=== PATIENT | female | born 1965 | race African-American/Black ===

== ENCOUNTER 2020-12-25 12:37 | Observation (INO) ==
[2020-12-25 13:44] LABS: Basophils # 0.1 10*3/uL (0.0-0.2); Basophils % 1.2 % (0.0-0.8); Eosinophils # 0.5 10*3/uL (0.0-0.87); Eosinophils % 4.8 % (0.00-10.9); Hematocrit 41.8 VOL% (35.7-47.0); Hemoglobin 13.5 GM/DL (12.0-16.0); Immature Granulocytes % 0.1 %; Immature Granulocytes Absolute 0.01 #; Lymphocytes # 3.5 10*3/uL (1.4-4.0); Lymphocytes % 36.8 % (21.3-54.2); Mean Corpuscular HGB Conc 32.3 GM/DL (32-36); Mean Corpuscular Volume 83.9 FL (87-102); Mean Platelet Volume 9.6 FL (9.6-12.0); Monocytes % 11.8 % (1.7-12.7); Neutrophils % 45.3 % (38.7-73.9); Platelet Count 365 T/CUMM (130-400); Red Blood Count 4.98 MC/CUMM (3.8-5.5); Red Cell Distribution Width 14.7 % (9.3-17.3); White Blood Count 9.4 T/CUMM (4-12)
[2020-12-25 14:04] LABS: Albumin 4.1 G/DL (3.4-5.0); Bilirubin,Total 0.4 MG/DL (0.20-1.00); Calcium 8.9 MG/DL (8.5-10.1); Osmolality,Calculated 278.4 MOS/KG (273-304); Potassium 3.2 MMOL/L (3.5-5.1); Total Protein 7.8 G/DL (6.4-8.2)
[2020-12-25] MEDS ORDERED: ONDANSETRON 4 MG/2 ML VIAL IV PRN (17:03)
[2020-12-25] MEDS ORDERED: GLUCAGON 1 MG VIAL IM PRN (17:03)
[2020-12-25] MEDS ORDERED: POTASSIUM CHLORIDE 20 MEQ TABLET PO ONE (17:03)
[2020-12-25] MEDS ORDERED: ACETAMINOPHEN 325 MG TABLET PO PRN (17:03)
[2020-12-25] MEDS ORDERED: KETOROLAC 30 MG/1 ML VIAL IV PRN (17:03)
[2020-12-25] MEDS ORDERED: DEXTROSE 50% 25 GM/50 ML VIAL IV PRN (17:03)
[2020-12-25] MEDS: SODIUM CHLOR 0.9% KCL 20 MEQ 20 MEQ/1,000 ML BAG IV SCH (19:24)
[2020-12-25] MEDS ORDERED: ROSUVASTATIN 10 MG TABLET PO SCH (21:00)
[2020-12-25] MEDS ORDERED: ENOXAPARIN 40 MG/0.4 ML SYRINGE SUBCUT SCH (21:00)
[2020-12-26] MEDS: SODIUM CHLOR 0.9% KCL 20 MEQ 20 MEQ/1,000 ML BAG IV SCH ×2 (04:02→11:50)
[2020-12-26 05:15] LABS: Calcium 8.6 MG/DL (8.5-10.1); Osmolality,Calculated 276.5 MOS/KG (273-304); Potassium 3.6 MMOL/L (3.5-5.1)
[2020-12-26] MEDS ORDERED: PANTOPRAZOLE 40 MG TABLET PO SCH (09:00)
[2020-12-26] MEDS ORDERED: ASPIRIN EC 81 MG TABLET PO SCH (09:00)
[2020-12-26] MEDS ORDERED: LOSARTAN 50 MG TABLET PO SCH (09:00)
[2020-12-26 11:37] VITALS: BP 100/47
== END 2020-12-26 12:03 | disposition home or self-care (01) ==
LOC: N.EDINP 12:37 → N.ED 12:37 → N.TELEN 23:44
PROVIDERS: ADMIT Phlebology; ATTEND Phlebology